=== PATIENT | male | born 1965 | race African-American/Black ===

== ENCOUNTER 2016-06-29 18:19 | Emergency (ER) | payer MEDICARE, OTHER ==
[~2016-06-29] VITALS: Ht 185.4 cm; Wt 125.2 kg
[~2016-06-29 18:19] MED LIST: NORCO 10/3251 EA ORAL
--- NOTE | 2016-06-29 18:37 | Emergency Room Report ---
History of Present Illness General Chief Complaint: Suicidal Source: Patient, EMS (Luis FSage) Present Illness HPI Patient is a 50-year-old male presented after increased suicidal thoughts. Patient had prior history of schizoaffective disorder. The patient reports being compliant with his psychiatric medications. Patient states that he had increased life stresses which had caused him to feel suicidal. patient states that he wanted to run into traffic. The patient reports having several alcoholic drinks earlier in the day. Patient denied any medical complaints. (Sage Kerns) Allergies: Coded Allergies: CIPROFLOXACIN (Unverified Allergy, Unknown, 08/05/14) Patient History Reviewed Nursing Documentation: PMH: Agreed, PSxH: Agreed (Sage Kerns) Nursing Documentation-PMH Hx Hypertension: Yes Hx Cancer: No Hx Gastrointestinal Problems: No History Of Psychiatric Problem: Yes - Schizo-affective Hx Neurological Problems: No (Sage Kerns) Review of Systems All Other Systems: negative except mentioned in HPI (Sage Kerns) Physical Exam Vital Signs Date Time Temp Pulse Resp B/P Pulse Ox O2 Delivery O2 Flow Rate FiO2 06/29/16 18:21 98.4 117 16 144/86 96 Room Air Sp02 EP Interpretation: reviewed, normal General Appearance: normal inspection, well appearing, no apparent distress, alert, GCS 15, non-toxic Head: atraumatic ENT: normal ENT inspection, hearing grossly normal, normal voice Neck: normal inspection, full range of motion, supple, no bony tend Respiratory: normal inspection, lungs clear, normal breath sounds, no respiratory distress, no retraction, no wheezing Cardiovascular #1: regular rate, rhythm, no edema Gastrointestinal: normal inspection, normal bowel sounds, non tender, soft, no guarding, no hernia Genitourinary: no CVA tenderness Musculoskeletal: normal inspection, back normal, normal range of motion Neurologic: normal inspection, alert, oriented x3, responsive, speech normal, other - slurred speech Psychiatric: normal inspection, judgement/insight normal, mood/affect normal Skin: normal inspection, normal color, no rash (Sage Kerns) Medical Decision Making Diagnostic Impression: Primary Impression: Psychiatric disorder Additional Impression: Polysubstance abuse ER Course Patient presented for suicidal thoughts. Differential diagnosis included was not limited to depression, malingering, bipolar disorder, alcohol intoxication, substance abuse, among others.Because of complexity of patient's case laboratory studies were ordered. Patient was noted to be initally slurring speech. Laboratory testing showed multiple substances present. Blood alcohol was mildly elevated at time of lab draw. Patient stated that he was no longer suicidal and wanted to leave. Given patients prior complaints will continue to observe for sobering and further evaluation. Patient was medically cleared for further psychiatric evaluation. Patient was endorsed to Dr. Moran pending final disposition. Labs Test 06/29/16 18:40 06/29/16 19:55 Urine Opiates Screen Negative (NEGATIVE) Urine Barbiturates Screen Negative (NEGATIVE) Phencyclidine (PCP) Screen Negative (NEGATIVE) Urine Amphetamines Screen Negative (NEGATIVE) Urine Benzodiazepines Screen Positive (NEGATIVE) Urine Cocaine Screen Positive (NEGATIVE) Urine Marijuana (THC) Screen Positive (NEGATIVE) White Blood Count 9.4 K/UL (4.8-10.8) Red Blood Count 3.83 M/UL (4.70-6.10) Hemoglobin 12.7 G/DL (14.2-18.0) Hematocrit 36.8 % (42.0-52.0) Mean Corpuscular Volume 96 FL (80-99) Mean Corpuscular Hemoglobin 33.0 PG (27.0-31.0) Mean Corpuscular Hemoglobin Concent 34.4 G/DL (32.0-36.0) Red Cell Distribution Width 12.2 % (11.6-14.8) Platelet Count 236 K/UL (150-450) Mean Platelet Volume 8.1 FL (6.5-10.1) Neutrophils (%) (Auto) 77.7 % (45.0-75.0) Lymphocytes (%) (Auto) 14.3 % (20.0-45.0) Monocytes (%) (Auto) 4.3 % (1.0-10.0) Eosinophils (%) (Auto) 2.4 % (0.0-3.0) Basophils (%) (Auto) 1.2 % (0.0-2.0) Sodium Level 140 mEQ/L (135-145) Potassium Level 4.4 mEQ/L (3.4-4.9) Chloride Level 97 mEQ/L (98-107) Carbon Dioxide Level 26 mEQ/L (20-30) Anion Gap 17 (5-15) Blood Urea Nitrogen 22 mg/dL (7-23) Creatinine 1.5 mg/dL (0.7-1.2) Estimat Glomerular Filtration Rate 59.5 mL/min (>60) Glucose Level 104 mg/dL (74-106) Calcium Level 9.3 mg/dL (8.6-10.2) Total Bilirubin < 0.2 mg/dL (0.0-1.2) Aspartate Amino Transf (AST/SGOT) 14 U/L (5-40) Alanine Aminotransferase (ALT/SGPT) 10 U/L (3-41) Alkaline Phosphatase 45 U/L (40-129) Total Protein 7.5 g/dL (6.6-8.7) Albumin 3.8 g/dL (3.5-5.2) Globulin 3.7 g/dL Albumin/Globulin Ratio 1.0 (1.0-2.7) Salicylates Level < 1 mg/dL (10-30) Acetaminophen Level < 10 ug/mL (10-30) Serum Alcohol 18 mg/dL (Sage Kerns) ER Course Received signout from Dr Moran at 630am for this patient Allegedly running into traffic, endorsed SI. Utox + for benzos, cocaine, THC Patient now alert and oriented. Denies SI. States he had argument with another person at care home yesterday who has since been removed. Has meds Depakote, Cymbalta for depression at care home. Has been compliant thru yesterday. Denies SI, HI, AVH With multiple conversations, patient denies SI. Wants to go back to care home, has psych followup I repeatedly offered Psych consult but patient doesnt want to stay. Will DC (OLIVIA CORNEJO M.D.) Last Vital Signs Date Time Temp Pulse Resp B/P Pulse Ox O2 Delivery O2 Flow Rate FiO2 06/29/16 18:21 98.4 117 16 144/86 96 Room Air Status: improved (Sage Kerns) Status: improved (OLIVIA CORNEJO M.D.) Disposition: HOME, SELF-CARE Condition: Stable Luis FSage Jun 29, 2016 18:37 OLIVIA CORNEJO M.D. June 30, 2016 09:32
[2016-06-29 19:00] VITALS: BP 141/89
[2016-06-29 20:09] LABS: BASOPHILS % (AUTO) 1.2 % (0.0-2.0); EOSINOPHILS % (AUTO) 2.4 % (0.0-3.0); LYMPHOCYTES % (AUTO) 14.3 % (20.0-45.0); MEAN CORPUSCULAR HGB CONC 34.4 G/DL (32.0-36.0); MEAN CORPUSCULAR VOLUME 96 FL (80-99); MEAN PLATELET VOLUME 8.1 FL (6.5-10.1); MONOCYTES % (AUTO) 4.3 % (1.0-10.0); NEUTROPHILS % (AUTO) 77.7 % (45.0-75.0); PLATELET COUNT 236 K/UL (150-450); RED BLOOD COUNT 3.83 M/UL (4.70-6.10); RED CELL DISTRIBUTION WIDTH 12.2 % (11.6-14.8); WHITE BLOOD COUNT 9.4 K/UL (4.8-10.8)
[2016-06-29 20:47] LABS: ACETAMINOPHEN < 10 ug/mL (10-30); ALANINE AMINOTRANSFERASE 10 U/L (3-41); ALCOHOL 18 mg/dL; ANION GAP 17 (5-15); ASPARTATE AMINO TRANSFERASE 14 U/L (5-40); CALCIUM 9.3 mg/dL (8.6-10.2); CARBON DIOXIDE 26 mEQ/L (20-30); CHLORIDE 97 mEQ/L (98-107); CREATININE 1.5 mg/dL (0.7-1.2); GLOMERULAR FILTRATION RATE 59.5 mL/min (>60); HEMOLYSIS 17; POTASSIUM 4.4 mEQ/L (3.4-4.9); SODIUM 140 mEQ/L (135-145); TOTAL PROTEIN 7.5 g/dL (6.6-8.7)
[2016-06-29 21:00] VITALS: BP 147/85
[2016-06-29] MEDS ORDERED: Lactulose 20gm/30ml UDC ORAL ONE (22:30)
[2016-06-29 23:00] VITALS: BP 138/82
[2016-06-30 01:00] VITALS: BP 140/87
[2016-06-30 03:00] VITALS: BP 147/89
[2016-06-30 05:00] VITALS: BP 150/92
[2016-06-30 07:30] VITALS: BP 152/90
[2016-06-30 09:39] VITALS: BP 141/79
== END 2016-06-30 09:57 | disposition home or self-care (01) ==
LOC: EDBD 18:19 → EMR 19:41
DX: R45.851 Suicidal ideations (principal); F14.10 Cocaine abuse, uncomplicated; F12.10 Cannabis abuse, uncomplicated; F25.9 Schizoaffective disorder, unspecified; F13.10 Sedative, hypnotic or anxiolytic abuse, uncomplicated; I10 Essential (primary) hypertension
CPT/HCPCS: 36415; 80053; 80300; 85025; 99283; G0480; 80329

== ENCOUNTER 2019-05-25 19:25 | Emergency (ER) | payer MEDICARE, OTHER ==
[~2019-05-25] VITALS: Ht 182.9 cm; Wt 131.1 kg
[2019-05-25 19:37] VITALS: BP 156/94
--- NOTE | 2019-05-25 19:37 | NUR ---
ED Nurse Note: Patient JULIANNA RA26 due to behaviorial complaint. Per EMS, patient has a plan on pouring a offender employment specialist fluid all over his body and burn himself. Per pt, he took alcohol, cocaine, methamphetamines, and marijuana with unk amount. SI precaution observed. Pt changed into a gown. ERMD at bedside.
--- NOTE | 2019-05-25 19:45 | NUR ---
ED Nurse Note: IV line established. Blood specimen collected and sent to lab.
[2019-05-25 20:19] LABS: BASOPHILS % (AUTO) 1.9 % (0.0-2.0); EOSINOPHILS % (AUTO) 2.4 % (0.0-3.0); HEMATOCRIT 47.8 % (42.0-52.0); HEMOGLOBIN 14.8 G/DL (14.2-18.0); LYMPHOCYTES % (AUTO) 19.2 % (20.0-45.0); MEAN CORPUSCULAR VOLUME 94 FL (80-99); MONOCYTES % (AUTO) 5.6 % (1.0-10.0); NEUTROPHILS % (AUTO) 70.9 % (45.0-75.0); PLATELET COUNT 262 K/UL (150-450); RED BLOOD COUNT 5.07 M/UL (4.70-6.10); RED CELL DISTRIBUTION WIDTH 14.4 % (11.6-14.8); WHITE BLOOD COUNT 11.1 K/UL (4.8-10.8)
--- NOTE | 2019-05-25 20:19 | NUR ---
ED Nurse Note: Patient's belongings was placed in locker 3.
--- NOTE | 2019-05-25 20:20 | NUR ---
ED Nurse Note: Report received from JODI Anderson. Pt placed in TX 2. VSs no ss of distress noted. pt IV fluids running. Pt currenly eating in bed. aao x 4 with steady gait. Pt reminded of required UA.
--- NOTE | 2019-05-25 20:37 | NUR ---
ED Nurse Note: Pt resting in bed, sitter at bedside safety precautions in place. Pt belongings in Locker 3
[2019-05-25 20:46] LABS: ANION GAP 6 mmol/L (5-15); BLOOD UREA NITROGEN 13 mg/dL (7-18); CALCIUM 9.4 MG/DL (8.5-10.1); CARBON DIOXIDE 32 MMOL/L (21-32); CHLORIDE 103 MMOL/L (98-107); CREATININE 1.1 MG/DL (0.55-1.30); POTASSIUM 4.4 MMOL/L (3.5-5.1); SODIUM 140 MMOL/L (136-145)
[2019-05-25 20:52] LABS: ALANINE AMINOTRANSFERASE 31 U/L (12-78); ALBUMIN 4.1 G/DL (3.4-5.0); ALBUMIN/GLOBULIN RATIO 0.9 (1.0-2.7); ALKALINE PHOSPHATASE 61 U/L (46-116); ASPARTATE AMINO TRANSFERASE 25 U/L (15-37); BILIRUBIN,TOTAL 0.2 MG/DL (0.2-1.0)
--- NOTE | 2019-05-25 21:15 | NUR ---
ED Nurse Note: UA sent to lab
--- NOTE | 2019-05-25 21:37 | NUR ---
ED Nurse Note: Pt resting in bed, sitter at bedside safety precautions in place.
[2019-05-25 21:40] VITALS: BP 145/90
--- NOTE | 2019-05-25 22:37 | NUR ---
ED Nurse Note: Pt resting in bed, no ss of distress noted. sitter at bedside safety precautions in place.
--- NOTE | 2019-05-25 23:37 | NUR ---
ED Nurse Note: Pt resting in bed, no ss of distress noted. sitter at bedside safety precautions in place.
[2019-05-25 23:59] VITALS: BP 139/87
--- NOTE | 2019-05-26 00:16 | Emergency Room Report ---
History of Present Illness General Chief Complaint: Behavioral Complaint Source: Patient Present Illness HPI Patient is a 53-year-old male endorsed to me by Dr. Henson. Patient is a 53 -year-old male brought in by EMS after increased suicidal thoughts. He states he wants to harm himself by walking into traffic. Previous ER visits in the past. Recent substance abuse. Allergies: Coded Allergies: CIPROFLOXACIN (Unverified Allergy, Unknown, 08/05/14) Patient History Past Medical History: see triage record Reviewed Nursing Documentation: PMH: Agreed; PSxH: Agreed Nursing Documentation-PMH Past Medical History: No History, Except For Hx Hypertension: Yes Hx Cancer: No Hx Gastrointestinal Problems: No History Of Psychiatric Problem: Yes - depression, anxiety, schizo affective disorder Hx Neurological Problems: No Review of Systems All Other Systems: negative except mentioned in HPI Physical Exam Vital Signs Date Time Temp Pulse Resp B/P (MAP) Pulse Ox O2 Delivery O2 Flow Rate FiO2 05/25/19 19:26 98.4 97 18 156/94 (114) 98 Room Air Sp02 EP Interpretation: reviewed, normal General Appearance: alert/responsive, no apparent distress, GCS 15, non-toxic Head: atraumatic Eyes: PERRL, lids + conjunctiva normal ENT: normal ENT inspection, hearing intact, no angioedema Neck: supple/symm/no masses, no meningismus Respiratory: effort normal, no wheezing, chest symmetrical Cardiovascular: regular rate, rhythm, no edema Cardiovascular #2: 2+ carotid (R), 2+ carotid (L), 2+ dorsalis pedis (R), 2+ dorsalis pedis (L) Gastrointestinal: non-tender, no mass, non-distended, no rebound/guarding, normal bowel sounds Musculoskeletal: gait & station normal, normal ROM, strength & tone normal, non -tender Neurologic: normal inspection, CN II-XII intact, oriented x3, sensory intact, normal speech Psychiatric: normal inspection Skin: no rash, well hydrated Lymphatic: normal inspection Medical Decision Making Diagnostic Impression: Primary Impression: Psychiatric disorder Additional Impression: Substance abuse ER Course Patient presented for psychosis. Differential diagnoses include substance abuse, psychosis, bipolar disorder, depression, malingering. Because of complexity of patient's case laboratory tests and imaging studies were ordered. Patient's laboratory testing was notable for urine drug screen positive for cocaine as well as marijuana. Patient was noted to be somewhat initially elevated blood alcohol level which was 59. Patient was medically cleared for psychiatric evaluation. Patient is not currently on a hold.Patient was accepted by psychiatric facility for voluntary placement. Patient [facility]. Labs Test 05/25/19 19:57 05/25/19 21:30 White Blood Count 11.1 K/UL (4.8-10.8) Red Blood Count 5.07 M/UL (4.70-6.10) Hemoglobin 14.8 G/DL (14.2-18.0) Hematocrit 47.8 % (42.0-52.0) Mean Corpuscular Volume 94 FL (80-99) Mean Corpuscular Hemoglobin 29.2 PG (27.0-31.0) Mean Corpuscular Hemoglobin Concent 31.0 G/DL (32.0-36.0) Red Cell Distribution Width 14.4 % (11.6-14.8) Platelet Count 262 K/UL (150-450) Mean Platelet Volume 8.9 FL (6.5-10.1) Neutrophils (%) (Auto) 70.9 % (45.0-75.0) Lymphocytes (%) (Auto) 19.2 % (20.0-45.0) Monocytes (%) (Auto) 5.6 % (1.0-10.0) Eosinophils (%) (Auto) 2.4 % (0.0-3.0) Basophils (%) (Auto) 1.9 % (0.0-2.0) Sodium Level 140 MMOL/L (136-145) Potassium Level 4.4 MMOL/L (3.5-5.1) Chloride Level 103 MMOL/L (98-107) Carbon Dioxide Level 32 MMOL/L (21-32) Anion Gap 6 mmol/L (5-15) Blood Urea Nitrogen 13 mg/dL (7-18) Creatinine 1.1 MG/DL (0.55-1.30) Estimat Glomerular Filtration Rate > 60 mL/min (>60) Glucose Level 117 MG/DL (74-106) Calcium Level 9.4 MG/DL (8.5-10.1) Total Bilirubin 0.2 MG/DL (0.2-1.0) Aspartate Amino Transf (AST/SGOT) 25 U/L (15-37) Alanine Aminotransferase (ALT/SGPT) 31 U/L (12-78) Alkaline Phosphatase 61 U/L (46-116) Total Protein 8.5 G/DL (6.4-8.2) Albumin 4.1 G/DL (3.4-5.0) Globulin 4.4 g/dL Albumin/Globulin Ratio 0.9 (1.0-2.7) Salicylates Level 2.8 ug/mL (2.8-20) Acetaminophen Level < 2 MCG/ML (10-30) Serum Alcohol 59 mg/dL Urine Opiates Screen Negative (NEGATIVE) Urine Barbiturates Screen Negative (NEGATIVE) Phencyclidine (PCP) Screen Negative (NEGATIVE) Urine Amphetamines Screen Negative (NEGATIVE) Urine Benzodiazepines Screen Negative (NEGATIVE) Urine Cocaine Screen Positive (NEGATIVE) Urine Marijuana (THC) Screen Positive (NEGATIVE) Last Vital Signs Date Time Temp Pulse Resp B/P (MAP) Pulse Ox O2 Delivery O2 Flow Rate FiO2 05/25/19 23:59 98.4 85 16 139/87 98 Room Air Status: improved Disposition: PSYCH HOSP/UNIT Condition: Stable Referrals: NOT CHOSEN IPA/,REFERRING (PCP) Sage Kerns MD May 26, 2019 00:16
--- NOTE | 2019-05-26 00:37 | NUR ---
ED Nurse Note: pt resting in bed, no ss of distress noted. Sitter at bedside. safety precautions in place.
[2019-05-26 01:37] VITALS: BP 132/79
--- NOTE | 2019-05-26 01:37 | NUR ---
ED Nurse Note: pt resting in bed, no ss of distress noted. Sitter at bedside. safety precautions in place.
--- NOTE | 2019-05-26 02:15 | NUR ---
ED Nurse Note: spoke with ava from [facility] and gave report. patient currently in bed awaiting for transfer. patient in no distress and acknowledged location of transfer. will continue to monitor
--- NOTE | 2019-05-26 02:37 | NUR ---
ED Nurse Note: pt resting in bed, no ss of distress noted. Sitter at bedside. safety precautions in place.
--- NOTE | 2019-05-26 03:37 | NUR ---
ED Nurse Note: pt resting in bed, no ss of distress noted. Sitter at bedside. safety precautions in place.
[2019-05-26 03:57] VITALS: BP 141/85
--- NOTE | 2019-05-26 03:57 | NUR ---
ER DISCHARGE NOTE: Patient is cleared to be discharged to [facility] via [facility] per ERMD, pt is aox4, on room air, with stable vital signs. pt was given dc and prescription instructions, pt was able to verbalize understanding, pt id band and iv site removed without complications. pt is able to ambulate with steady gait. pt took all belongings. Charge nurse gave report to facility; facility aware of pts arrival.
--- NOTE | 2019-05-31 21:37 | Emergency Room Report ---
History of Present Illness General Chief Complaint: Behavioral Complaint Source: Patient Present Illness HPI 53-year-old male presents the ED for psychiatric evaluation. Brought in by EMS. Patient states that he wants to hurt himself. Poured streaming media specialist fluid on himself. EMS states they cannot smell or detect a streaming media specialist fluid. Patient also admits to alcohol and drug use. States he wants to walk into traffic. Notes that he does take psych meds. Denies fevers or chills. Denies chest pain. Denies nausea or vomiting. No other aggravating relieving factors. Denies any other associated symptoms Allergies: Coded Allergies: CIPROFLOXACIN (Unverified Allergy, Unknown, 08/05/14) COVID-19 Screening Contact w/high risk pt: No Recent Travel to affected area: No Experienced COVID-19 symptoms?: No Patient History Past Medical History: psych hx Past Surgical History: none Pertinent Family History: none Social History: Reports: alcohol use, drug use; Denies: smoking Immunizations: UTD Reviewed Nursing Documentation: PMH: Agreed; PSxH: Agreed Nursing Documentation-PMH Past Medical History: No History, Except For Hx Hypertension: Yes Hx Cancer: No Hx Gastrointestinal Problems: No History Of Psychiatric Problem: Yes - depression, anxiety, schizo affective disorder Hx Neurological Problems: No Review of Systems All Other Systems: negative except mentioned in HPI Physical Exam Sp02 EP Interpretation: reviewed, normal General Appearance: no apparent distress, GCS 15, non-toxic, obese, other - intoxicated Head: normocephalic, atraumatic Eyes: bilateral eye normal inspection, bilateral eye PERRL ENT: hearing grossly normal, normal pharynx, no angioedema, normal voice Neck: full range of motion, supple/symm/no masses Respiratory: chest non-tender, lungs clear, normal breath sounds, speaking full sentences Cardiovascular #1: regular rate, rhythm, no edema Cardiovascular #2: 2+ carotid (R), 2+ carotid (L), 2+ radial (R), 2+ radial (L) , 2+ dorsalis pedis (R), 2+ dorsalis pedis (L) Gastrointestinal: normal bowel sounds, non tender, soft, non-distended, no guarding, no rebound Rectal: deferred Genitourinary: normal inspection, no CVA tenderness Musculoskeletal: back normal, normal range of motion, gait/station normal, non- tender Neurologic: responsive, speech normal, other - intoxicated Psychiatric: no suicidal/homicidal ideation, other - intoxicated Reflexes: 3+ bicep (R), 3+ bicep (L), 3+ tricep (R), 3+ tricep (L), 3+ knee (R) , 3+ knee (L) Lymphatic: no adenopathy Medical Decision Making Diagnostic Impression: Primary Impression: Psychiatric disorder Additional Impression: Substance abuse Disposition: PSYCH HOSP/UNIT Condition: Stable Signed Out To: Dr Kerns Referrals: NOT CHOSEN IPA/,REFERRING (PCP) Arian Henson MD May 31, 2019 21:37
== END 2019-05-26 03:57 ==
LOC: EDBD 19:25 → EDUNIT# 19:25 → EMR 19:52
DX: R45.851 Suicidal ideations (principal); F19.10 Other psychoactive substance abuse, uncomplicated; I10 Essential (primary) hypertension; F41.9 Anxiety disorder, unspecified; F32.9 Major depressive disorder, single episode, unspecified; F25.9 Schizoaffective disorder, unspecified; Z88.1 Allergy status to other antibiotic agents
CPT/HCPCS: 36415; 80053; 80307; 85025; 96360; 99285; G0480; J7030

== ENCOUNTER 2019-11-24 20:50 | Emergency (ER) | payer MEDICARE, OTHER ==
[~2019-11-24] VITALS: Ht 182.9 cm; Wt 128.4 kg
[2019-11-24 21:12] VITALS: BP 134/82
--- NOTE | 2019-11-24 21:23 | Emergency Room Report ---
History of Present Illness General Chief Complaint: Behavioral Complaint Source: Patient (Stanley Yung MD) Present Illness HPI Disclaimer: Please note that this report is being documented using [employer] technology. This can lead to erroneous entry secondary to incorrect i nterpretation by the dictating instrument. HPI: 52-year-old male history of depression, psychosis presents for evaluation of suicidal thoughts. Patient states he has felt depressed and that he is being taken advantage of by his friends and family for some time. Today he was in a argument with a friend of his causing him significant distress. He states he "felt suicidal" and took 4 tablets of Ambien of unknown dosage. This was approximately 4 PM. He states he felt no effects of those. Has not fallen a sleep, complained of dizziness, lightheadedness, chest pain, shortness of breath or any other symptoms at this time. He denies any other attempt at self-harm or ingestion. Denies drug or alcohol use. He is requesting to speak with a psychiatrist. 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 EOMI. Cardiovascular: Slightly tachycardic. S1 and S2 normal. No murmur appreciated Resp: Normal work of breathing. No cough, wheezing or crackles appreciated Abdomen: Abdomen is soft, nondistended. Nontender Skin: Intact. No abrasions, laceration or rash over the exposed skin MSK: Normal tone and bulk. Moving all extremities. No obvious deformity. Neuro: Awake and alert. Mentating appropriately. Does not appear to be respond ing to internal stimuli. Appears anxious. (Stanley Yung MD) Medical Decision Making Diagnostic Impression: Primary Impression: Suicidal ideation Additional Impressions: Substance abuse Renal insufficiency ER Course 54-year-old male presents for evaluation of suicidal ideations. Reports taking Ambien proximately 5 hours ago without effect on attempted self-harm. He is not on legal hold would like to speak with a psychiatrist voluntarily. Consenting to labs which will take for psychiatric clearance. Patient will be signed out to oncoming provider pending lab results and final disposition. (Stanley Yung MD) ER Course Patient signed out to me. Please see above note. Labs significant for positive tox screen. Also elevated BUN and creatinine. Reviewing past labs his creatinine is been elevated several years ago. In April it was normal. IV hydration ordered. Repeated labs improved. Patient stated did not want more IV hydration. Medically cleared for psychiatric evaluation. Signed out to Dr. Montemayor. Laboratory Tests Test 11/24/19 21:30 11/24/19 21:35 11/24/19 21:55 11/25/19 05:00 Urine Color Pale yellow Urine Appearance Clear Urine pH 6 (4.5-8.0) Urine Specific [place] 1.015 (1.005-1.035) Urine Protein 2+ (NEGATIVE) H Urine Glucose (UA) Negative (NEGATIVE) Urine Ketones Negative (NEGATIVE) Urine Blood 1+ (NEGATIVE) H Urine Nitrite Negative (NEGATIVE) Urine Bilirubin Negative (NEGATIVE) Urine Urobilinogen Normal MG/DL (0.0-1.0) Urine Leukocyte Esterase Negative (NEGATIVE) Urine RBC 2-4 /HPF (0 - 0) H Urine WBC 0-2 /HPF (0 - 0) Urine Squamous Epithelial Cells None /LPF (NONE/OCC) Urine Bacteria None /HPF (NONE) Urine Opiates Screen Negative (NEGATIVE) Urine Barbiturates Screen Negative (NEGATIVE) Phencyclidine (PCP) Screen Negative (NEGATIVE) Urine Amphetamines Screen Positive (NEGATIVE) H Urine Benzodiazepines Screen Positive (NEGATIVE) H Urine Cocaine Screen Positive (NEGATIVE) H Urine Marijuana (THC) Screen Negative (NEGATIVE) White Blood Count 11.7 K/UL (4.8-10.8) H Red Blood Count 3.73 M/UL (4.70-6.10) L Hemoglobin 11.8 G/DL (14.2-18.0) L Hematocrit 35.8 % (42.0-52.0) L Mean Corpuscular Volume 96 FL (80-99) Mean Corpuscular Hemoglobin 31.7 PG (27.0-31.0) H Mean Corpuscular Hemoglobin Concent 33.0 G/DL (32.0-36.0) Red Cell Distribution Width 14.0 % (11.6-14.8) Platelet Count 174 K/UL (150-450) Mean Platelet Volume 9.1 FL (6.5-10.1) Neutrophils (%) (Auto) 71.2 % (45.0-75.0) Lymphocytes (%) (Auto) 17.1 % (20.0-45.0) L Monocytes (%) (Auto) 8.1 % (1.0-10.0) Eosinophils (%) (Auto) 1.6 % (0.0-3.0) Basophils (%) (Auto) 1.9 % (0.0-2.0) Sodium Level 138 MMOL/L (136-145) 141 MMOL/L (136-145) Potassium Level 4.4 MMOL/L (3.5-5.1) 3.9 MMOL/L (3.5-5.1) Chloride Level 100 MMOL/L (98-107) 106 MMOL/L (98-107) Carbon Dioxide Level 30 MMOL/L (21-32) 27 MMOL/L (21-32) Anion Gap 8 mmol/L (5-15) 8 mmol/L (5-15) Blood Urea Nitrogen 30 mg/dL (7-18) H 27 mg/dL (7-18) H Creatinine 1.9 MG/DL (0.55-1.30) H 1.7 MG/DL (0.55-1.30) H Estimated Glomerular Filtration Rate 44.7 mL/min (>60) 50.8 mL/min (>60) Glucose Level 136 MG/DL (74-106) H 169 MG/DL (74-106) H Calcium Level 9.4 MG/DL (8.5-10.1) 8.1 MG/DL (8.5-10.1) L Total Bilirubin 0.3 MG/DL (0.2-1.0) Pending Aspartate Amino Transferase (AST) 23 U/L (15-37) Pending Alanine Aminotransferase (ALT) 28 U/L (12-78) Pending Alkaline Phosphatase 52 U/L (46-116) Pending Total Protein 7.6 G/DL (6.4-8.2) Pending Albumin 4.1 G/DL (3.4-5.0) Pending Globulin 3.5 g/dL Pending Albumin/Globulin Ratio 1.2 (1.0-2.7) Salicylates Level 2.2 ug/mL (2.8-20) L Acetaminophen Level < 2 MCG/ML (10-30) L Serum Alcohol < 3 mg/dL Microbiology Date/Time Source Procedure Growth Status 11/24/19 22:07 Nasopharynx SARS-CoV-2 RdRp Gene Assay - Final Complete (Eddie Arroyo MD) ER Course Reevaluation 1:57 PM patient is no longer suicidal or homicidal patient states he feels fine and only needs refills on his medications patient states he needs a refill of Xanax, his Xanax cannot be refilled however will provide him with his Depakote Cymbalta and Latuda counseled patient that strict return precautions discussed patient will follow-up with psychiatry (Laz Montemayor MD) Last Vital Signs Date Time Temp Pulse Resp B/P (MAP) Pulse Ox O2 Delivery O2 Flow Rate FiO2 11/24/19 21:02 98.4 115 20 134/82 (99) 96 Room Air (Stanley Yung MD) Last Vital Signs Date Time Temp Pulse Resp B/P (MAP) Pulse Ox O2 Delivery O2 Flow Rate FiO2 11/25/19 09:54 98.4 81 17 128/72 100 Room Air Status: improved (Eddie Arroyo MD) Disposition: HOME, SELF-CARE Condition: Stable Scripts Lurasidone Hcl (LATUDA) 80 Mg Tablet 80 MG PO DAILY, #30 TAB Prov: Laz Montemayor MD 11/25/19 Duloxetine Hcl* (CYMBALTA*) 30 Mg Capsule.dr 90 MG ORAL DAILY, #90 CAP Prov: Laz Montemayor MD 11/25/19 Divalproex Sodium (Depakote) 500 Mg Tablet. 500 MG PO TID, #90 TAB Prov: Laz Montemayor MD 11/25/19 Referrals: [facility] Patient Instructions: Self-Destructive Behavior Additional Instructions: The patient was provided with discharge instructions, notified to follow-up with a primary care doctor and or specialist in the next 24-48 hours, and to return to the ED if they have worsening of their symptoms. Please note that this report is being documented using [employer] technology. This can lead to erroneous entry secondary to incorrect interpretation by the dictating instrument. Stanley Yung MD Nov 24, 2019 21:23 Eddie Arroyo MD Nov 24, 2019 22:51 Laz Montemayor MD Nov 25, 2019 14:01
[2019-11-24 22:08] LABS: BASOPHILS % (AUTO) 1.9 % (0.0-2.0); EOSINOPHILS % (AUTO) 1.6 % (0.0-3.0); HEMATOCRIT 35.8 % (42.0-52.0); HEMOGLOBIN 11.8 G/DL (14.2-18.0); LYMPHOCYTES % (AUTO) 17.1 % (20.0-45.0); MEAN CORPUSCULAR VOLUME 96 FL (80-99); MONOCYTES % (AUTO) 8.1 % (1.0-10.0); NEUTROPHILS % (AUTO) 71.2 % (45.0-75.0); PLATELET COUNT 174 K/UL (150-450); RED BLOOD COUNT 3.73 M/UL (4.70-6.10); WHITE BLOOD COUNT 11.7 K/UL (4.8-10.8)
[2019-11-24 22:12] LABS: ANION GAP 8 mmol/L (5-15); BLOOD UREA NITROGEN 30 mg/dL (7-18); CALCIUM 9.4 MG/DL (8.5-10.1); CARBON DIOXIDE 30 MMOL/L (21-32); CHLORIDE 100 MMOL/L (98-107); CREATININE 1.9 MG/DL (0.55-1.30); POTASSIUM 4.4 MMOL/L (3.5-5.1); SODIUM 138 MMOL/L (136-145)
[2019-11-24 22:17] LABS: ALANINE AMINOTRANSFERASE 28 U/L (12-78); ALBUMIN 4.1 G/DL (3.4-5.0); ALBUMIN/GLOBULIN RATIO 1.2 (1.0-2.7); ALKALINE PHOSPHATASE 52 U/L (46-116); ASPARTATE AMINO TRANSFERASE 23 U/L (15-37); BILIRUBIN,TOTAL 0.3 MG/DL (0.2-1.0)
[2019-11-24 23:02] LABS: APPEARANCE,URINE CLEAR; BILIRUBIN, URINE NEGATIVE (NEGATIVE); COLOR,URINE PALE YELLOW; GLUCOSE, URINE (UA) NEGATIVE (NEGATIVE); KETONES,URINE NEGATIVE (NEGATIVE); LEUKOCYTE ESTERASE ,URINE NEGATIVE (NEGATIVE); NITRITE,URINE NEGATIVE (NEGATIVE); PH,URINE 6 (4.5-8.0); PROTEIN,URINE 2+ (NEGATIVE); UROBILINOGEN,URINE NORMAL MG/DL (0.0-1.0)
[2019-11-24 23:15] VITALS: BP 139/84
[2019-11-25 01:30] VITALS: BP 139/79
[2019-11-25 03:25] VITALS: BP 142/82
[2019-11-25 05:07] VITALS: BP 135/76
[2019-11-25 05:18] LABS: CALCIUM 8.1 MG/DL (8.5-10.1); CREATININE 1.7 MG/DL (0.55-1.30); POTASSIUM 3.9 MMOL/L (3.5-5.1)
[2019-11-25 05:24] LABS: ALBUMIN 3.1 G/DL (3.4-5.0); ALBUMIN/GLOBULIN RATIO 0.9 (1.0-2.7); BILIRUBIN,TOTAL 0.2 MG/DL (0.2-1.0)
[2019-11-25 09:54] VITALS: BP 128/72
[2019-11-25] MEDS ORDERED: CYMBALTA30 MG ORAL (14:00)
[2019-11-25] MEDS ORDERED: LATUDA80 MG PO (14:00)
[2019-11-25] MEDS ORDERED: DEPAKOTE500 MG PO (14:00)
[2019-11-25 14:19] VITALS: BP 134/75
== END 2019-11-25 14:21 | disposition home or self-care (01) ==
LOC: EMR 21:05
DX: R45.851 Suicidal ideations (principal); F15.10 Other stimulant abuse, uncomplicated; F14.10 Cocaine abuse, uncomplicated; F13.10 Sedative, hypnotic or anxiolytic abuse, uncomplicated; N28.9 Disorder of kidney and ureter, unspecified; I10 Essential (primary) hypertension; F32.9 Major depressive disorder, single episode, unspecified; Z88.1 Allergy status to other antibiotic agents
CPT/HCPCS: 36415; 80053; 80307; 81003; 85025; 96360; 99285; G0480; J7030; U0002